=== PATIENT | male | born 1960 | race Caucasian/White ===

== ENCOUNTER 2017-05-19 08:29 | Inpatient (IN) ==
[2017-05-19] MEDS ORDERED: methylPREDNISolone SOD SUC 125 MG/2 ML VIAL IV STA (08:48)
[2017-05-19] MEDS ORDERED: ONDANSETRON 4 MG/2 ML VIAL IV PRN ×2 (08:48→11:43)
[2017-05-19] MEDS ORDERED: SODIUM CHLORIDE 0.9% 500 ML IV STA (08:48)
[2017-05-19] MEDS ORDERED: ALBUTEROL 2.5 MG/3 ML NEB RESP TX STA (08:48)
[2017-05-19] MEDS ORDERED: FUROSEMIDE 40 MG/4 ML VIAL IV STA (09:03)
[2017-05-19 09:18] LABS: Basophils # 0.1 10*3/uL (0.0-0.2); Basophils % 0.1 % (0.0-0.8); Hematocrit 35.4 VOL% (42.0-52.0); Hemoglobin 11.1 GM/DL (14.0-18.0); Immature Granulocytes % 0.6 %; Immature Granulocytes Absolute 0.54 #; Lymphocytes # 34.8 10*3/uL (1.4-4.0); Mean Corpuscular HGB Conc 31.4 GM/DL (32-36); Mean Corpuscular Hemoglobin 26 PG (27-34); Mean Corpuscular Volume 84.3 FL (87-102); Mean Platelet Volume 10.9 FL (9.6-12.0); Monocytes # 18.9 10*3/uL (0.11-0.8); Monocytes % 21.7 % (1.7-12.7); NRBC # 0.55 10*3/uL; Neutrophils # 32.8 10*3/uL (1.4-7.4); Neutrophils % 37.6 % (38.7-73.9); Platelet Count 137 T/CUMM (130-400); Red Cell Distribution Width 16.5 % (9.3-17.3)
[2017-05-19 09:22] LABS: INR 1.3; PT Patient Result 13.4 SECS; Partial Thromboplastin Time 32.7 SECS (0-40)
[2017-05-19 09:28] LABS: White Blood Count 87.1 T/CUMM (4-12)
[2017-05-19] MEDS ORDERED: FUROSEMIDE 100 MG/10 ML VIAL ONE (09:33)
[2017-05-19] MEDS ORDERED: methylPREDNISolone SOD SUC 125 MG/2 ML VIAL ONE (09:34)
[2017-05-19 09:39] LABS: Bilirubin,Total 1.1 MG/DL (0.2-1.0); Calcium 7.3 MG/DL (8.5-10.1); Osmolality,Calculated 237.5 MOS/KG (273-304); Potassium 4.3 MMOL/L (3.5-5.1); Total Protein 4.9 G/DL (6.4-8.3)
[2017-05-19 09:48] LABS: ABG Base Excess -1.4 MMOL/L (-2.5-2.5); ABG HCO3 23.2 MMOL/L (20-26); ABG Oxygen Saturation 95.3 % (95-100); ABG PCO2 23.3 MM HG (35-48); ABG PH 7.541 (7.35-7.45); ABG PO2 71.2 MM HG (80-95)
[2017-05-19 09:51] LABS: Lactic Acid 5.6 MMOL/L (0.4-2.0)
[2017-05-19 09:53] LABS: Troponin I Only 0.063 NG/ML (0.00-0.045)
[2017-05-19] MEDS ORDERED: PIPERACILLIN/TAZOBACTAM 3,375 MG in SODIUM CHLORIDE 0.9% 100 ML IV STA (10:15)
[2017-05-19 10:23] LABS: Eosinophils 1 % (0-10); Hypochromasia 1+; Lymphocytes 57 % (20-55); Nucleated Red Blood Cells 3 (0-5); Segmented Neutrophils 27 % (50-85); Total Cells Counted 100
[2017-05-19 10:24] LABS: Atypical Lymphocytes Many; Microcytosis 1+; Platelet Estimate Adequate; Polychromasia Slight; Smudge Cells Few
[2017-05-19 10:38] LABS: Apearance,Urine CLEAR (Clear); Bilirubin,Urine Negative (Negative); Blood, Urine Negative (Negative); Glucose,Urine (UA) Negative (Negative); Ketones,Urine Negative (Negative); Nitrite,Urine Negative (Negative); Protein,Urine Negative; Urine Color Straw (Yellow); Urine Specific Gravity 1.003 (1.001-1.035); Urine Urobilinogen < 2.0 EU/DL (0.2-1.0); WBC,Urine <1 /HPF (0-6)
[2017-05-19 10:47] LABS: Barbiturates Screen,Urine Negative (Negative); Benzodiazepines Screen,Urine Negative (Negative); Cannabinoid Screen,Urine Negative (Negative); Opiate Screen,Urine Negative (Negative); Phencyclidine Screen,Urine Negative (Negative)
[2017-05-19] MEDS ORDERED: PIPERACILLIN/TAZOBACTAM 3,375 MG in SODIUM CHLORIDE 0.9% 100 ML IV SCH (11:30)
[2017-05-19] MEDS ORDERED: MORPHINE 2 MG/1 ML SYRINGE IV PRN (11:43)
[2017-05-19] MEDS ORDERED: traZODone 50 MG TABLET PO PRN (11:43)
[2017-05-19] MEDS ORDERED: VANCOMYCIN INJ 1,250 MG in SODIUM CHLORIDE 0.9% 250 ML IV PRN (11:57)
[2017-05-19] MEDS ORDERED: VANCOMYCIN INJ 1,250 MG in SODIUM CHLORIDE 0.9% 250 ML IV ONE (12:30)
[2017-05-19] MEDS ORDERED: SODIUM CHLORIDE 3% INJ 500 ML IV SCH (12:30)
[2017-05-19] MEDS ORDERED: ALBUTEROL/IPRATROPIUM 3 ML NEB RESP TX PRN (12:42)
[2017-05-19] MEDS: MEROPENEM 1,000 MG in SYRINGE 1 EACH IV SCH ×2 (13:00→20:37)
[2017-05-19] MEDS: SODIUM CHLORIDE 0.9% 1,000 ML IV SCH (13:20)
[2017-05-19] MEDS: ENOXAPARIN 40 MG/0.4 ML SYRINGE SUBCUT SCH (13:30)
[2017-05-20] MEDS: VANCOMYCIN INJ 1,250 MG in SODIUM CHLORIDE 0.9% 250 ML IV SCH ×2 (01:08→13:24)
[2017-05-20] MEDS: SODIUM CHLORIDE 0.9% 1,000 ML IV SCH ×2 (01:08→11:42)
[2017-05-20 03:35] LABS: ABG Base Excess -0.4 MMOL/L (-2.5-2.5); ABG Oxygen Saturation 95.8 % (95-100); ABG PCO2 31.2 MM HG (35-48); ABG PO2 78.3 MM HG (80-95); ABG TCO2 20.7 MMOL/L (23-27); Allen Test Positive
[2017-05-20] MEDS: MEROPENEM 1,000 MG in SYRINGE 1 EACH IV SCH ×3 (03:44→21:31)
[2017-05-20 07:22] LABS: Hematocrit 27.9 VOL% (42.0-52.0); Immature Granulocytes % 0.7 %; Immature Granulocytes Absolute 0.49 #; Lymphocytes # 42.7 10*3/uL (1.4-4.0); Lymphocytes % 57.7 % (21.2-54.2); Mean Corpuscular HGB Conc 32.6 GM/DL (32-36); Mean Corpuscular Hemoglobin 27 PG (27-34); Mean Corpuscular Volume 82.3 FL (87-102); Mean Platelet Volume 10.8 FL (9.6-12.0); Monocytes # 15.4 10*3/uL (0.11-0.8); Monocytes % 20.8 % (1.7-12.7); NRBC # 0.14 10*3/uL; Neutrophils # 15.4 10*3/uL (1.4-7.4); Neutrophils % 20.8 % (38.7-73.9); Platelet Count 112 T/CUMM (130-400); Red Blood Count 3.39 MC/CUMM (3.8-5.5); Red Cell Distribution Width 16.8 % (9.3-17.3)
[2017-05-20] MEDS ORDERED: methylPREDNISolone SOD SUC 125 MG/2 ML VIAL IV ONE (07:24)
[2017-05-20 07:39] LABS: Hemoglobin 9.1 GM/DL (14.0-18.0)
[2017-05-20 07:40] LABS: Albumin 1.6 G/DL (3.4-5.0); Bilirubin,Total 0.9 MG/DL (0.2-1.0); Calcium 6.8 MG/DL (8.5-10.1); Osmolality,Calculated 250.5 MOS/KG (273-304); Potassium 3.5 MMOL/L (3.5-5.1); Total Protein 4.1 G/DL (6.4-8.3)
[2017-05-20 07:44] LABS: Atypical Lymphocytes Moderate; Band Neutrophils 2 % (0-10); Hypochromasia 1+; Lymphocytes 35 % (20-55); Nucleated Red Blood Cells 1 (0-5); Platelet Estimate Decreased; Segmented Neutrophils 46 % (50-85); Smudge Cells Moderate; Total Cells Counted 100
[2017-05-20 07:45] LABS: Giant Platelets Few; Microcytosis Slight
[2017-05-20] MEDS: methylPREDNISolone SOD SUC 125 MG/2 ML VIAL IV SCH ×2 (09:32→21:23)
[2017-05-20] MEDS: ENOXAPARIN 40 MG/0.4 ML SYRINGE SUBCUT SCH (11:37)
[2017-05-20] MEDS ORDERED: BENZOCAINE/MENTHOL LOZENGE 18/BOX PO PRN (20:52)
[2017-05-21] MEDS: MEROPENEM 1,000 MG in SYRINGE 1 EACH IV SCH ×3 (04:21→20:58)
[2017-05-21] MEDS: VANCOMYCIN INJ 1,250 MG in SODIUM CHLORIDE 0.9% 250 ML IV SCH ×2 (04:25→17:00)
[2017-05-21 05:40] LABS: Hematocrit 28.7 VOL% (42.0-52.0); Hemoglobin 8.8 GM/DL (14.0-18.0); Immature Granulocytes % 0.7 %; Immature Granulocytes Absolute 0.38 #; Lymphocytes # 27.7 10*3/uL (1.4-4.0); Lymphocytes % 51.4 % (21.2-54.2); Mean Corpuscular HGB Conc 30.7 GM/DL (32-36); Mean Corpuscular Hemoglobin 26 PG (27-34); Mean Corpuscular Volume 85.7 FL (87-102); Mean Platelet Volume 10.7 FL (9.6-12.0); Monocytes % 16.7 % (1.7-12.7); NRBC # 0.15 10*3/uL; Neutrophils # 16.8 10*3/uL (1.4-7.4); Neutrophils % 31.2 % (38.7-73.9); Platelet Count 102 T/CUMM (130-400); Red Blood Count 3.35 MC/CUMM (3.8-5.5); Red Cell Distribution Width 16.8 % (9.3-17.3)
[2017-05-21 05:59] LABS: White Blood Count 53.9 T/CUMM (4-12)
[2017-05-21 06:29] LABS: Calcium 7.1 MG/DL (8.5-10.1); Osmolality,Calculated 259.1 MOS/KG (273-304); Potassium 3.8 MMOL/L (3.5-5.1)
[2017-05-21 06:36] LABS: Lymphocytes 31 % (20-55); Nucleated Red Blood Cells 3 (0-5); Segmented Neutrophils 59 % (50-85); Total Cells Counted 100
[2017-05-21 06:37] LABS: Atypical Lymphocytes Moderate; Hypochromasia 1+; Microcytosis 1+; Polychromasia Slight; Smudge Cells Many
[2017-05-21 06:38] LABS: Platelet Estimate Decreased
[2017-05-21] MEDS: methylPREDNISolone SOD SUC 125 MG/2 ML VIAL IV SCH ×2 (12:09→20:13)
[2017-05-21] MEDS: FUROSEMIDE 40 MG/4 ML VIAL IV SCH (12:09)
[2017-05-21] MEDS: ENOXAPARIN 40 MG/0.4 ML SYRINGE SUBCUT SCH (12:09)
[2017-05-22] MEDS: MEROPENEM 1,000 MG in SYRINGE 1 EACH IV SCH ×3 (03:23→20:13)
[2017-05-22] MEDS: VANCOMYCIN INJ 1,250 MG in SODIUM CHLORIDE 0.9% 250 ML IV SCH ×2 (05:22→15:39)
[2017-05-22 05:47] LABS: Hematocrit 28.5 VOL% (42.0-52.0); Hemoglobin 9.1 GM/DL (14.0-18.0); Immature Granulocytes % 1.4 %; Immature Granulocytes Absolute 0.98 #; Lymphocytes # 44.1 10*3/uL (1.4-4.0); Lymphocytes % 63.1 % (21.2-54.2); Mean Corpuscular HGB Conc 31.9 GM/DL (32-36); Mean Corpuscular Hemoglobin 27 PG (27-34); Mean Corpuscular Volume 83.1 FL (87-102); Mean Platelet Volume 10.4 FL (9.6-12.0); Monocytes # 7.7 10*3/uL (0.11-0.8); NRBC # 0.29 10*3/uL; Neutrophils # 17.1 10*3/uL (1.4-7.4); Neutrophils % 24.5 % (38.7-73.9); Platelet Count 103 T/CUMM (130-400); Red Blood Count 3.43 MC/CUMM (3.8-5.5); Red Cell Distribution Width 17.4 % (9.3-17.3)
[2017-05-22 06:06] LABS: White Blood Count 69.9 T/CUMM (4-12)
[2017-05-22 06:15] LABS: Lymphocytes 42 % (20-55); Nucleated Red Blood Cells 1 (0-5); Total Cells Counted 100
[2017-05-22 06:16] LABS: Atypical Lymphocytes Few; Giant Platelets Few; Hypochromasia 1+; Microcytosis Slight; Platelet Estimate Decreased; Segmented Neutrophils 47 % (50-85); Smudge Cells Moderate
[2017-05-22 06:44] LABS: Osmolality,Calculated 258.2 MOS/KG (273-304); Potassium 4.1 MMOL/L (3.5-5.1)
[2017-05-22] MEDS: FUROSEMIDE 40 MG/4 ML VIAL IV SCH (09:43)
[2017-05-22] MEDS: methylPREDNISolone SOD SUC 125 MG/2 ML VIAL IV SCH ×2 (09:44→20:14)
[2017-05-22] MEDS: ENOXAPARIN 40 MG/0.4 ML SYRINGE SUBCUT SCH (11:16)
[2017-05-23] MEDS: MEROPENEM 1,000 MG in SYRINGE 1 EACH IV SCH ×4 (03:58→22:44)
[2017-05-23] MEDS: VANCOMYCIN INJ 1,250 MG in SODIUM CHLORIDE 0.9% 250 ML IV SCH (03:58)
[2017-05-23 05:36] LABS: Hematocrit 28.3 VOL% (42.0-52.0); Immature Granulocytes % 1.3 %; Immature Granulocytes Absolute 0.96 #; Lymphocytes # 46.1 10*3/uL (1.4-4.0); Mean Corpuscular HGB Conc 31.8 GM/DL (32-36); Mean Corpuscular Hemoglobin 27 PG (27-34); Mean Corpuscular Volume 83.7 FL (87-102); Mean Platelet Volume 10.8 FL (9.6-12.0); Monocytes # 13.5 10*3/uL (0.11-0.8); Monocytes % 17.8 % (1.7-12.7); NRBC # 0.35 10*3/uL; Neutrophils # 15.1 10*3/uL (1.4-7.4); Neutrophils % 19.9 % (38.7-73.9); Platelet Count 106 T/CUMM (130-400); Red Blood Count 3.38 MC/CUMM (3.8-5.5); Red Cell Distribution Width 17.7 % (9.3-17.3)
[2017-05-23 05:42] LABS: White Blood Count 75.7 T/CUMM (4-12)
[2017-05-23 06:09] LABS: Calcium 6.9 MG/DL (8.5-10.1); Osmolality,Calculated 256.4 MOS/KG (273-304); Potassium 4.1 MMOL/L (3.5-5.1)
[2017-05-23 06:14] LABS: Lymphocytes 35 % (20-55); Segmented Neutrophils 56 % (50-85); Total Cells Counted 100
[2017-05-23 06:15] LABS: Anisocytosis 1+; Atypical Lymphocytes Few; Hypochromasia 1+; Microcytosis 1+; Smudge Cells Many
[2017-05-23 06:16] LABS: Platelet Estimate Decreased; Polychromasia Few
[2017-05-23] MEDS: methylPREDNISolone SOD SUC 125 MG/2 ML VIAL IV SCH ×2 (08:14→16:28)
[2017-05-23] MEDS: SODIUM CHLORIDE 0.9% 1,000 ML IV SCH ×2 (08:14→18:57)
[2017-05-23] MEDS: ENOXAPARIN 40 MG/0.4 ML SYRINGE SUBCUT SCH (13:48)
[2017-05-24] MEDS: methylPREDNISolone SOD SUC 125 MG/2 ML VIAL IV SCH ×3 (01:19→15:52)
[2017-05-24] MEDS: MEROPENEM 1,000 MG in SYRINGE 1 EACH IV SCH ×3 (04:07→20:45)
[2017-05-24] MEDS: SODIUM CHLORIDE 0.9% 1,000 ML IV SCH ×3 (04:45→20:54)
[2017-05-24] MEDS: DILTIAZEM 30 MG TABLET PO SCH ×2 (12:49→20:46)
[2017-05-24] MEDS: ENOXAPARIN 40 MG/0.4 ML SYRINGE SUBCUT SCH (12:49)
[2017-05-25] MEDS: methylPREDNISolone SOD SUC 125 MG/2 ML VIAL IV SCH ×3 (01:08→16:46)
[2017-05-25] MEDS: MEROPENEM 1,000 MG in SYRINGE 1 EACH IV SCH ×3 (05:28→20:20)
[2017-05-25 06:17] LABS: Calcium 7.1 MG/DL (8.5-10.1); Osmolality,Calculated 254.5 MOS/KG (273-304); Potassium 4.7 MMOL/L (3.5-5.1)
[2017-05-25] MEDS ORDERED: GRANISETRON 1 MG/1 ML VIAL IV SCH (08:30)
[2017-05-25] MEDS ORDERED: VINCRISTINE IV ONE (09:00)
[2017-05-25] MEDS ORDERED: SODIUM CHLORIDE 0.9% IV ONE (09:00)
[2017-05-25] MEDS ORDERED: CYCLOPHOSPHAMIDE IV ONE (09:00)
[2017-05-25] MEDS: DILTIAZEM 30 MG TABLET PO SCH ×2 (09:07→20:18)
[2017-05-25] MEDS: SODIUM CHLORIDE 0.9% 1,000 ML IV SCH (09:10)
[2017-05-25] MEDS: ENOXAPARIN 40 MG/0.4 ML SYRINGE SUBCUT SCH (13:31)
[2017-05-26] MEDS: PIPERACILLIN/TAZOBACTAM 3,375 MG in SODIUM CHLORIDE 0.9% 100 ML IV SCH ×2 (00:06→05:34)
[2017-05-26] MEDS: SODIUM CHLORIDE 0.9% 1,000 ML IV SCH ×3 (00:08→20:23)
[2017-05-26] MEDS: methylPREDNISolone SOD SUC 125 MG/2 ML VIAL IV SCH ×3 (01:08→21:31)
[2017-05-26 06:07] LABS: Hematocrit 25.1 VOL% (42.0-52.0); Immature Granulocytes Absolute 0.65 #; Lymphocytes # 42.6 10*3/uL (1.4-4.0); Lymphocytes % 63.5 % (21.2-54.2); Mean Corpuscular HGB Conc 31.9 GM/DL (32-36); Mean Corpuscular Hemoglobin 27 PG (27-34); Mean Corpuscular Volume 83.4 FL (87-102); Mean Platelet Volume 10.8 FL (9.6-12.0); Monocytes # 8.9 10*3/uL (0.11-0.8); Monocytes % 13.2 % (1.7-12.7); NRBC # 0.15 10*3/uL; Neutrophils % 22.3 % (38.7-73.9); Red Blood Count 3.01 MC/CUMM (3.8-5.5); Red Cell Distribution Width 18.2 % (9.3-17.3)
[2017-05-26 06:17] LABS: Platelet Count 95 T/CUMM (130-400)
[2017-05-26 06:18] LABS: White Blood Count 67.1 T/CUMM (4-12)
[2017-05-26 06:30] LABS: Atypical Lymphocytes Moderate; Band Neutrophils 3 % (0-10); Hypochromasia 2+; Lymphocytes 14 % (20-55); Platelet Estimate Decreased; Polychromasia Slight; Segmented Neutrophils 82 % (50-85); Smudge Cells Many; Total Cells Counted 100
[2017-05-26 06:45] LABS: Albumin 1.5 G/DL (3.4-5.0); Bilirubin,Total 1.2 MG/DL (0.2-1.0); Calcium 6.9 MG/DL (8.5-10.1); Osmolality,Calculated 254.5 MOS/KG (273-304); Total Protein 3.7 G/DL (6.4-8.3)
[2017-05-26] MEDS ORDERED: SODIUM CHLORIDE 0.9% 1,000 ML IV PRN (08:08)
[2017-05-26] MEDS: DILTIAZEM 30 MG TABLET PO SCH ×2 (09:31→20:25)
[2017-05-26] MEDS: ENOXAPARIN 40 MG/0.4 ML SYRINGE SUBCUT SCH (11:46)
[2017-05-26] MEDS: MEROPENEM 500 MG in SYRINGE 1 EACH IV SCH (13:30)
[2017-05-26] MEDS ORDERED: FUROSEMIDE 40 MG/4 ML VIAL IV ONE (16:15)
[2017-05-26] MEDS ORDERED: FUROSEMIDE 20 MG/2 ML VIAL ONE (16:24)
[2017-05-27] MEDS: MEROPENEM 500 MG in SYRINGE 1 EACH IV SCH ×2 (02:41→12:57)
[2017-05-27 05:11] LABS: Hematocrit 29.2 VOL% (42.0-52.0); Hemoglobin 9.4 GM/DL (14.0-18.0); Immature Granulocytes % 0.5 %; Immature Granulocytes Absolute 0.19 #; Lymphocytes # 22.6 10*3/uL (1.4-4.0); Lymphocytes % 60.7 % (21.2-54.2); Mean Corpuscular HGB Conc 32.2 GM/DL (32-36); Mean Corpuscular Hemoglobin 28 PG (27-34); Mean Corpuscular Volume 85.6 FL (87-102); Mean Platelet Volume 11.2 FL (9.6-12.0); Monocytes # 4.2 10*3/uL (0.11-0.8); Monocytes % 11.2 % (1.7-12.7); NRBC # 0.04 10*3/uL; Neutrophils # 10.3 10*3/uL (1.4-7.4); Neutrophils % 27.6 % (38.7-73.9); Platelet Count 65 T/CUMM (130-400); Red Blood Count 3.41 MC/CUMM (3.8-5.5); Red Cell Distribution Width 17.4 % (9.3-17.3); White Blood Count 37.3 T/CUMM (4-12)
[2017-05-27 05:36] LABS: Lymphocytes 9 % (20-55); Segmented Neutrophils 88 % (50-85); Total Cells Counted 100
[2017-05-27 05:37] LABS: Albumin 1.4 G/DL (3.4-5.0); Atypical Lymphocytes Few; Bilirubin,Total 1.1 MG/DL (0.2-1.0); Calcium 6.5 MG/DL (8.5-10.1); Giant Platelets Few; Hypochromasia 1+; Microcytosis Slight; Osmolality,Calculated 264.1 MOS/KG (273-304); Platelet Estimate Decreased; Potassium 4.4 MMOL/L (3.5-5.1); Total Protein 3.7 G/DL (6.4-8.3)
[2017-05-27 05:38] LABS: Smudge Cells Many
[2017-05-27] MEDS ORDERED: FUROSEMIDE 40 MG/4 ML VIAL IV ONE (07:45)
[2017-05-27] MEDS ORDERED: ALBUMIN 25% 25 GM in PREMIX 1 EACH IV ONE (07:45)
[2017-05-27] MEDS: SODIUM CHLORIDE 0.9% 1,000 ML IV SCH (08:21)
[2017-05-27] MEDS: DILTIAZEM 30 MG TABLET PO SCH ×2 (08:22→20:33)
[2017-05-27] MEDS: methylPREDNISolone SOD SUC 125 MG/2 ML VIAL IV SCH (09:24)
[2017-05-27] MEDS: ENOXAPARIN 40 MG/0.4 ML SYRINGE SUBCUT SCH (13:00)
[2017-05-28] MEDS: MEROPENEM 500 MG in SYRINGE 1 EACH IV SCH ×2 (01:47→14:34)
[2017-05-28] MEDS: SODIUM CHLORIDE 0.9% 1,000 ML IV SCH (03:27)
[2017-05-28 05:22] LABS: Basophils % 0.1 % (0.0-0.8); Hematocrit 26.5 VOL% (42.0-52.0); Hemoglobin 8.3 GM/DL (14.0-18.0); Immature Granulocytes % 0.8 %; Immature Granulocytes Absolute 0.15 #; Lymphocytes # 9.9 10*3/uL (1.4-4.0); Lymphocytes % 54.3 % (21.2-54.2); Mean Corpuscular HGB Conc 31.3 GM/DL (32-36); Mean Corpuscular Hemoglobin 27 PG (27-34); Mean Corpuscular Volume 87.2 FL (87-102); Mean Platelet Volume 11.2 FL (9.6-12.0); Monocytes # 2.7 10*3/uL (0.11-0.8); Monocytes % 14.8 % (1.7-12.7); NRBC # 0.03 10*3/uL; Neutrophils # 5.5 10*3/uL (1.4-7.4); Red Blood Count 3.04 MC/CUMM (3.8-5.5); Red Cell Distribution Width 17.5 % (9.3-17.3); White Blood Count 18.3 T/CUMM (4-12)
[2017-05-28 05:25] LABS: Platelet Count 54 T/CUMM (130-400)
[2017-05-28 05:46] LABS: Lymphocytes 20 % (20-55); Segmented Neutrophils 75 % (50-85); Total Cells Counted 100
[2017-05-28 05:47] LABS: Atypical Lymphocytes Few; Smudge Cells Many
[2017-05-28 05:48] LABS: Albumin 1.7 G/DL (3.4-5.0); Bilirubin,Total 1.7 MG/DL (0.2-1.0); Calcium 6.4 MG/DL (8.5-10.1); Hypochromasia 1+; Microcytosis 1+; Osmolality,Calculated 269.5 MOS/KG (273-304); Platelet Estimate Decreased; Polychromasia Slight; Potassium 4.1 MMOL/L (3.5-5.1); Total Protein 3.5 G/DL (6.4-8.3)
[2017-05-28] MEDS ORDERED: methylPREDNISolone SOD SUC 125 MG/2 ML VIAL IV SCH (09:00)
[2017-05-28] MEDS: predniSONE 20 MG TABLET PO SCH (09:28)
[2017-05-28] MEDS: DILTIAZEM 30 MG TABLET PO SCH ×2 (09:28→20:30)
[2017-05-28] MEDS: FUROSEMIDE 40 MG/4 ML VIAL IV SCH ×2 (14:32→20:29)
[2017-05-28] MEDS: ENOXAPARIN 40 MG/0.4 ML SYRINGE SUBCUT SCH (14:36)
[2017-05-29] MEDS: MEROPENEM 500 MG in SYRINGE 1 EACH IV SCH (01:16)
[2017-05-29 05:07] LABS: Basophils % 0.1 % (0.0-0.8); Hemoglobin 8.6 GM/DL (14.0-18.0); Immature Granulocytes % 0.9 %; Immature Granulocytes Absolute 0.09 #; Lymphocytes # 6.2 10*3/uL (1.4-4.0); Lymphocytes % 61.8 % (21.2-54.2); Mean Corpuscular HGB Conc 33.1 GM/DL (32-36); Mean Corpuscular Hemoglobin 28 PG (27-34); Mean Corpuscular Volume 85.2 FL (87-102); Monocytes # 0.3 10*3/uL (0.11-0.8); Monocytes % 3.2 % (1.7-12.7); Neutrophils # 3.4 10*3/uL (1.4-7.4); Platelet Count 50 T/CUMM (130-400); Red Blood Count 3.05 MC/CUMM (3.8-5.5); Red Cell Distribution Width 17.8 % (9.3-17.3); White Blood Count 10.1 T/CUMM (4-12)
[2017-05-29 05:49] LABS: Anisocytosis Slight; Atypical Lymphocytes Few; Band Neutrophils 2 % (0-10); Lymphocytes 41 % (20-55); Nucleated Red Blood Cells 1 (0-5); Platelet Estimate Decreased; Segmented Neutrophils 53 % (50-85); Smudge Cells 2+; Total Cells Counted 100
[2017-05-29] MEDS: predniSONE 20 MG TABLET PO SCH (10:16)
[2017-05-29] MEDS: DILTIAZEM 30 MG TABLET PO SCH (10:16)
[2017-05-29] MEDS ORDERED: MORPHINE 4 MG/1 ML VIAL IV PRN (11:57)
[2017-05-29 12:17] VITALS: BP 117/59
== END 2017-05-29 15:30 | disposition home health service (06) | DRG 840 ==
LOC: N.ED 08:29 → SUATTDRO 10:38 → N.EDINP 10:38 → N.CC 11:45 → N.4E 05-21 19:07
PROVIDERS: ADMIT Family Medicine; ATTEND Internal Medicine

== ENCOUNTER 2017-12-08 10:17 | Inpatient (IN) ==
[2017-12-08] MEDS ORDERED: methylPREDNISolone SOD SUC 125 MG/2 ML VIAL IV STA (10:45)
[2017-12-08] MEDS ORDERED: ONDANSETRON 4 MG/2 ML VIAL IV STA (10:45)
[2017-12-08] MEDS ORDERED: ALBUTEROL NEB SOLN 5 MG/ML 20 ML/BOTTLE RESP TX SCH (11:00)
[2017-12-08 11:03] LABS: Basophils # 0.1 10*3/uL (0.0-0.2); Basophils % 0.4 % (0.0-0.8); Hematocrit 27.6 VOL% (42.0-52.0); Hemoglobin 8.3 GM/DL (14.0-18.0); Immature Granulocytes % 1.7 %; Immature Granulocytes Absolute 0.22 #; Lymphocytes # 9.1 10*3/uL (1.4-4.0); Lymphocytes % 68.3 % (21.2-54.2); Mean Corpuscular HGB Conc 30.1 GM/DL (32-36); Mean Corpuscular Hemoglobin 25 PG (27-34); Mean Corpuscular Volume 82.9 FL (87-102); Monocytes # 1.5 10*3/uL (0.11-0.8); Neutrophils # 2.5 10*3/uL (1.4-7.4); Neutrophils % 18.6 % (38.7-73.9); Platelet Count 110 T/CUMM (130-400); Red Blood Count 3.33 MC/CUMM (3.8-5.5); White Blood Count 13.3 T/CUMM (4-12)
[2017-12-08 11:10] LABS: INR 1.1; PT Patient Result 11.5 SECS; Partial Thromboplastin Time 30.5 SECS (0-40)
[2017-12-08 11:25] LABS: Alanine Aminotransferase < 9 U/L (16-61); Albumin 2.3 G/DL (3.4-5.0); Alkaline Phosphatase 214 U/L (45-117); Aspartate Amino Transferase 15 U/L (0-37); Blood Urea Nitrogen 5 MG/DL (7-18); Calcium 7.7 MG/DL (8.5-10.1); Glucose 95 MG/DL (74-106); Osmolality,Calculated 243.8 MOS/KG (273-304); Potassium 3.2 MMOL/L (3.5-5.1); Sodium 123 MMOL/L (136-145); Total Protein 5.5 G/DL (6.4-8.3); Troponin I < 0.015 NG/ML (0.00-0.045)
[2017-12-08 11:27] LABS: Anisocytosis 1+; Atypical Lymphocytes Few; Band Neutrophils 1 % (0-10); Hypochromasia 1+; Lymphocytes 70 % (20-55); Microcytosis 1+; Segmented Neutrophils 24 % (50-85); Total Cells Counted 100
[2017-12-08 11:28] LABS: Platelet Estimate Adequate
[2017-12-08] MEDS ORDERED: guaiFENesin/DM ER 600-30 MG TABLET PO PRN (14:11)
[2017-12-08] MEDS ORDERED: NICOTINE 21 MG/24 HR PATCH TRANSDERM PRN (14:11)
[2017-12-08] MEDS ORDERED: MORPHINE 4 MG/1 ML VIAL IV PRN (14:11)
[2017-12-08] MEDS ORDERED: DOCUSATE SODIUM 100 MG CAPSULE PO PRN (14:11)
[2017-12-08] MEDS ORDERED: ACETAMINOPHEN 325 MG TABLET PO PRN (14:11)
[2017-12-08] MEDS ORDERED: diphenhydrAMINE CAP 25 MG CAPSULE PO PRN (14:11)
[2017-12-08] MEDS ORDERED: ONDANSETRON 4 MG/2 ML VIAL IV PRN (14:11)
[2017-12-08] MEDS ORDERED: ALBUTEROL 2.5 MG/3 ML NEB RESP TX PRN (14:15)
[2017-12-08] MEDS: cefTRIAXone 1,000 MG in SYRINGE 1 EACH IV SCH (16:39)
[2017-12-08] MEDS: SODIUM CHLOR 0.9% KCL 40 MEQ 40 MEQ/1,000 ML BAG IV SCH (16:39)
[2017-12-08] MEDS: PANTOPRAZOLE 40 MG TABLET PO SCH (16:40)
[2017-12-08] MEDS: AZITHROMYCIN INJ 500 MG in SODIUM CHLORIDE 0.9% 250 ML IV SCH (18:00)
[2017-12-08] MEDS: ALBUTEROL/IPRATROPIUM 3 ML NEB RESP TX SCH (18:58)
[2017-12-08] MEDS ORDERED: ENOXAPARIN 80 MG/0.8 ML SYRINGE SUBCUT ONE (19:57)
[2017-12-09] MEDS: ALBUTEROL/IPRATROPIUM 3 ML NEB RESP TX SCH ×4 (00:12→19:35)
[2017-12-09] MEDS: SODIUM CHLOR 0.9% KCL 40 MEQ 40 MEQ/1,000 ML BAG IV SCH ×3 (01:16→12:30)
[2017-12-09 03:15] LABS: Apearance,Urine CLEAR (Clear); Bilirubin,Urine Negative (Negative); Blood, Urine Negative (Negative); Glucose,Urine (UA) Negative (Negative); Ketones,Urine Negative (Negative); Nitrite,Urine Negative (Negative); Protein,Urine Negative; Renal Epithelial Cells,Urine Occasional /HPF (<1); Squamous Epithelial Cell,Urine Occasional /HPF (0-10); Urine Color Yellow (Yellow); Urine Specific Gravity 1.027 (1.001-1.035); Urine Urobilinogen < 2.0 EU/DL (0.2-1.0); WBC,Urine 3 /HPF (0-6)
[2017-12-09 05:26] LABS: Basophils % 0.2 % (0.0-0.8); Hematocrit 20.3 VOL% (42.0-52.0); Immature Granulocytes % 1.3 %; Immature Granulocytes Absolute 0.13 #; Lymphocytes # 5.6 10*3/uL (1.4-4.0); Lymphocytes % 58.3 % (21.2-54.2); Mean Corpuscular HGB Conc 31.5 GM/DL (32-36); Mean Corpuscular Hemoglobin 26 PG (27-34); Mean Corpuscular Volume 80.9 FL (87-102); Mean Platelet Volume 9.5 FL (9.6-12.0); Monocytes # 2.2 10*3/uL (0.11-0.8); Monocytes % 22.4 % (1.7-12.7); Neutrophils # 1.7 10*3/uL (1.4-7.4); Neutrophils % 17.8 % (38.7-73.9); Platelet Count 113 T/CUMM (130-400); Red Blood Count 2.51 MC/CUMM (3.8-5.5); White Blood Count 9.7 T/CUMM (4-12)
[2017-12-09 05:28] LABS: Hemoglobin 6.4 GM/DL (14.0-18.0)
[2017-12-09 05:39] LABS: Calcium 7.2 MG/DL (8.5-10.1); Osmolality,Calculated 252.2 MOS/KG (273-304); Potassium 3.3 MMOL/L (3.5-5.1)
[2017-12-09 05:55] LABS: Atypical Lymphocytes Few; Hypochromasia 1+; Lymphocytes 57 % (20-55); Microcytosis 1+; Platelet Estimate Decreased; Segmented Neutrophils 36 % (50-85); Smudge Cells Few; Total Cells Counted 100
[2017-12-09 06:36] LABS: Hematocrit 20.2 VOL% (42.0-52.0)
[2017-12-09 06:38] LABS: Hemoglobin 6.4 GM/DL (14.0-18.0)
[2017-12-09] MEDS ORDERED: SODIUM CHLORIDE 0.9% 1,000 ML IV PRN (07:58)
[2017-12-09] MEDS ORDERED: MAGNESIUM SULF RIDER 2 GM in PREMIX 1 EACH IV ONE (08:00)
[2017-12-09] MEDS ORDERED: POTASSIUM CHLORIDE 20 MEQ TABLET PO ONE (08:59)
[2017-12-09] MEDS: methylPREDNISolone SOD SUC 40 MG/1 ML VIAL IV SCH ×2 (10:07→20:56)
[2017-12-09] MEDS: PANTOPRAZOLE 40 MG TABLET PO SCH (10:12)
[2017-12-09] MEDS: FLUTICASONE 50 MCG NASAL SPRAY 16 GM BOTTLE BOTH NARES SCH (11:59)
[2017-12-09] MEDS: CETIRIZINE 10 MG TABLET PO SCH (11:59)
[2017-12-09] MEDS: cefTRIAXone 1,000 MG in SYRINGE 1 EACH IV SCH (14:43)
[2017-12-09] MEDS: AZITHROMYCIN INJ 500 MG in SODIUM CHLORIDE 0.9% 250 ML IV SCH (20:59)
[2017-12-10] MEDS: ALBUTEROL/IPRATROPIUM 3 ML NEB RESP TX SCH ×4 (01:06→19:05)
[2017-12-10 03:17] LABS: Basophils % 0.4 % (0.0-0.8); Hematocrit 26.4 VOL% (42.0-52.0); Hemoglobin 8.4 GM/DL (14.0-18.0); Immature Granulocytes % 5.7 %; Immature Granulocytes Absolute 0.38 #; Lymphocytes % 59.8 % (21.2-54.2); Mean Corpuscular HGB Conc 31.8 GM/DL (32-36); Mean Corpuscular Hemoglobin 26 PG (27-34); Mean Corpuscular Volume 82.8 FL (87-102); Mean Platelet Volume 9.2 FL (9.6-12.0); Monocytes # 0.8 10*3/uL (0.11-0.8); Monocytes % 11.6 % (1.7-12.7); Neutrophils # 1.5 10*3/uL (1.4-7.4); Neutrophils % 22.5 % (38.7-73.9); Platelet Count 112 T/CUMM (130-400); Red Blood Count 3.19 MC/CUMM (3.8-5.5); Red Cell Distribution Width 16.2 % (9.3-17.3); White Blood Count 6.7 T/CUMM (4-12)
[2017-12-10 03:38] LABS: Alanine Aminotransferase < 9 U/L (16-61); Alkaline Phosphatase 183 U/L (45-117); Aspartate Amino Transferase 19 U/L (0-37); Blood Urea Nitrogen 9 MG/DL (7-18); Calcium 7.2 MG/DL (8.5-10.1); Glucose 112 MG/DL (74-106); Osmolality,Calculated 254.2 MOS/KG (273-304); Potassium 4.1 MMOL/L (3.5-5.1); Sodium 127 MMOL/L (136-145); Total Protein 4.9 G/DL (6.4-8.3)
[2017-12-10 03:53] LABS: Lymphocytes 38 % (20-55); Metamyelocytes 2 %; Myelocytes 1 %; Nucleated Red Blood Cells 1 (0-5); Platelet Estimate Decreased; Segmented Neutrophils 49 % (50-85); Total Cells Counted 100
[2017-12-10 03:54] LABS: Atypical Lymphocytes Few; Polychromasia Slight; Smudge Cells Few
[2017-12-10] MEDS: methylPREDNISolone SOD SUC 40 MG/1 ML VIAL IV SCH ×2 (08:20→20:07)
[2017-12-10] MEDS: FLUTICASONE 50 MCG NASAL SPRAY 16 GM BOTTLE BOTH NARES SCH ×3 (08:21→20:09)
[2017-12-10] MEDS: PANTOPRAZOLE 40 MG TABLET PO SCH (08:22)
[2017-12-10] MEDS: AZITHROMYCIN 250 MG TABLET PO SCH (08:22)
[2017-12-10] MEDS: CETIRIZINE 10 MG TABLET PO SCH (08:25)
[2017-12-10] MEDS: SODIUM CHLOR 0.9% KCL 40 MEQ 40 MEQ/1,000 ML BAG IV SCH (09:19)
[2017-12-10] MEDS: SODIUM CHLORIDE 0.9% 1,000 ML IV SCH ×2 (10:55→23:21)
[2017-12-10] MEDS: cefTRIAXone 1,000 MG in SYRINGE 1 EACH IV SCH (14:02)
[2017-12-10] MEDS: SODIUM BICARBONATE 650 MG TABLET PO SCH (15:03)
[2017-12-11] MEDS: ALBUTEROL/IPRATROPIUM 3 ML NEB RESP TX SCH ×3 (00:05→14:15)
[2017-12-11 06:36] LABS: Basophils % 0.1 % (0.0-0.8); Hematocrit 26.8 VOL% (42.0-52.0); Hemoglobin 8.4 GM/DL (14.0-18.0); Immature Granulocytes % 2.6 %; Immature Granulocytes Absolute 0.18 #; Lymphocytes # 3.9 10*3/uL (1.4-4.0); Lymphocytes % 56.7 % (21.2-54.2); Mean Corpuscular HGB Conc 31.3 GM/DL (32-36); Mean Corpuscular Hemoglobin 26 PG (27-34); Mean Corpuscular Volume 82.2 FL (87-102); Mean Platelet Volume 9.7 FL (9.6-12.0); Monocytes # 1.3 10*3/uL (0.11-0.8); Monocytes % 18.2 % (1.7-12.7); NRBC # 0.05 10*3/uL; Neutrophils # 1.5 10*3/uL (1.4-7.4); Neutrophils % 22.4 % (38.7-73.9); Red Blood Count 3.26 MC/CUMM (3.8-5.5); Red Cell Distribution Width 16.2 % (9.3-17.3); White Blood Count 6.9 T/CUMM (4-12)
[2017-12-11 06:37] LABS: Platelet Count 86 T/CUMM (130-400)
[2017-12-11 07:03] LABS: Calcium 7.3 MG/DL (8.5-10.1); Osmolality,Calculated 255.1 MOS/KG (273-304); Potassium 4.4 MMOL/L (3.5-5.1)
[2017-12-11 07:09] LABS: Band Neutrophils 3 % (0-10); Hypochromasia 1+; Lymphocytes 48 % (20-55); Nucleated Red Blood Cells 2 (0-5); Platelet Estimate Decreased; Segmented Neutrophils 43 % (50-85); Total Cells Counted 100
[2017-12-11 07:10] LABS: Atypical Lymphocytes Few; Microcytosis Slight; Smudge Cells Few
[2017-12-11] MEDS ORDERED: FUROSEMIDE 40 MG/4 ML VIAL IV ONE (08:45)
[2017-12-11] MEDS ORDERED: LORazepam 2 MG/1 ML VIAL IV ONE (09:51)
[2017-12-11] MEDS: PANTOPRAZOLE 40 MG TABLET PO SCH (09:55)
[2017-12-11] MEDS: CETIRIZINE 10 MG TABLET PO SCH (09:55)
[2017-12-11] MEDS: SODIUM BICARBONATE 650 MG TABLET PO SCH ×3 (09:56→21:53)
[2017-12-11] MEDS: METOPROLOL TARTRATE 25 MG TABLET PO SCH ×2 (09:56→21:54)
[2017-12-11] MEDS: AZITHROMYCIN 250 MG TABLET PO SCH (09:57)
[2017-12-11] MEDS: methylPREDNISolone SOD SUC 40 MG/1 ML VIAL IV SCH ×2 (09:57→21:54)
[2017-12-11] MEDS: FLUTICASONE 50 MCG NASAL SPRAY 16 GM BOTTLE BOTH NARES SCH ×2 (10:10→21:55)
[2017-12-11] MEDS ORDERED: ALPRAZolam 0.25 MG TABLET PO PRN (11:33)
[2017-12-11] MEDS: SODIUM CHLORIDE 0.9% 1,000 ML IV SCH (13:30)
[2017-12-11] MEDS ORDERED: TUBERCULIN SKIN TEST 0.1 ML SYRINGE INTRADERM ONE (13:52)
[2017-12-11] MEDS ORDERED: SODIUM CHLORIDE 0.65% NASAL SPRAY 45 ML BOTTLE BOTH NARES PRN (14:11)
[2017-12-11] MEDS: cefTRIAXone 1,000 MG in SYRINGE 1 EACH IV SCH (14:49)
[2017-12-12 01:28] VITALS: BP 116/60
[2017-12-12 04:33] LABS: Basophils % 0.1 % (0.0-0.8); Eosinophils % 0.1 % (0.00-10.9); Hematocrit 26.9 VOL% (42.0-52.0); Hemoglobin 8.4 GM/DL (14.0-18.0); Immature Granulocytes % 3.2 %; Immature Granulocytes Absolute 0.61 #; Lymphocytes # 11.6 10*3/uL (1.4-4.0); Lymphocytes % 61.7 % (21.2-54.2); Mean Corpuscular HGB Conc 31.2 GM/DL (32-36); Mean Corpuscular Hemoglobin 27 PG (27-34); Mean Corpuscular Volume 85.4 FL (87-102); Mean Platelet Volume 9.6 FL (9.6-12.0); Monocytes # 4.2 10*3/uL (0.11-0.8); Monocytes % 22.4 % (1.7-12.7); Neutrophils # 2.4 10*3/uL (1.4-7.4); Neutrophils % 12.5 % (38.7-73.9); Platelet Count 72 T/CUMM (130-400); Red Blood Count 3.15 MC/CUMM (3.8-5.5); Red Cell Distribution Width 16.7 % (9.3-17.3); White Blood Count 18.9 T/CUMM (4-12)
[2017-12-12 04:52] LABS: Calcium 7.4 MG/DL (8.5-10.1); Osmolality,Calculated 260.8 MOS/KG (273-304); Potassium 5.4 MMOL/L (3.5-5.1)
[2017-12-12 06:07] LABS: Band Neutrophils 3 % (0-10); Lymphocytes 61 % (20-55); Myelocytes 1 %; Nucleated Red Blood Cells 10 (0-5); Segmented Neutrophils 22 % (50-85); Total Cells Counted 100
[2017-12-12 06:08] LABS: Anisocytosis 1+; Hypochromasia 1+; Ovalocytes 1+; Platelet Estimate Decreased
== END 2017-12-12 04:15 | disposition expired | DRG 840 ==
LOC: N.ED 10:17 → N.EDINP 14:11 → N.4E 14:45
PROVIDERS: ADMIT Internal Medicine; ATTEND Internal Medicine